=== PATIENT | female | born 1980 | race Caucasian/White ===

== ENCOUNTER 2020-10-04 00:07 | Outpatient (CLI) | payer OTHER, SELFPAY ==
[2020-10-04 19:24] LABS: SARS-CoV-2 RNA PCR Negative
== END 2020-10-04 00:08 | disposition home or self-care (01) ==
LOC: ANHCOVIDDT 00:07
PROVIDERS: Visit Provider Surgery
DX: Z20.828 Contact with and (suspected) exposure to other viral communicable diseases (principal)
CPT/HCPCS: 87635; C9803; U0003

== ENCOUNTER 2020-10-07 00:38 | Day surgery (SDC) | payer OTHER, SELFPAY ==
[2020-09-02 14:51] VITALS: BMI 28.1
[2020-10-07 11:06] VITALS: BP 119/81; PULSE 86; RESP 20; TEMP 36.9; O2SAT 100
[2020-10-07] MEDS: LACTATED RINGERS 1,000 ML 30 ML IV CONT ×2 (11:22→15:12)
[2020-10-07] MEDS: ACETAMINOPHEN 500 MG TABLET 1000 MG PO (11:44)
[2020-10-07] MEDS: KETOROLAC 15 MG/ML VIAL (*BKC) IV PUSH (11:45)
--- NOTE | 2020-10-07 12:07 | PM.IMHP ---
H&P: HPI History of Present Illness Date/Time: 10/07/20 12:07 Chief complaint: GradeIII Internal Hemorrhoid, Residual Hemorrhoid Narrative: Pippa Sena is a 40 year old female who presents with occasional bleeding internal hemorrhoids. She experiences protrusion, pain, and bleeding after BM's. Review of Systems Review of Systems: All systems reviewed & are unremarkable except as noted in HPI and below Constitutional: Constitutional: Denies chills, Denies fever(s), Denies headache(s) and Denies weight loss Eyes: Eyes: Denies change in vision ENT: Denies dizziness, Denies headache(s), Denies neck mass and Denies throat swelling Cardiovascular: Cardiovascular: Denies chest pain, Denies lightheadedness and Denies dyspnea Respiratory: Respiratory: Denies cough, Denies dyspnea and Denies wheezing Gastrointestinal: Gastrointestinal: Denies abdominal pain, Denies change in bowel habits, Denies nausea and Denies vomiting Genitourinary: Genitourinary: Denies hematuria and Denies dysuria Musculoskeletal: Musculoskeletal: Reports as per HPI Integumentary/Breasts: Skin/Breast: Reports as per HPI Neurologic: Denies dizziness and Denies headache(s) Allergic/Immunologic: Allergic/Immunologic: Denies throat swelling and Denies wheezing PMFSH Past Medical History Medical History Depression Surgical History Surgical History History of arthroplasty of knee 1998 History of delivery 2012, 2017 History of removal of skin mole nga removal 1988 2012 History of tonsillectomy 2004 Family History Family History Mother Family history of lupus erythematosus Father Diabetes mellitus Other Cerebrovascular accident Family history of allergic disorder Family history of cardiovascular disease Social History Social History Smoking status: Never smoker Alcohol intake: current Drinks per week: 5 Substance use: former Substance use type: marijuana 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 Spiritual care concerns: No Meds Home Medications and Allergies Home Medications Medication Instructions Recorded Confirmed Type cetirizine 10 mg capsule 10 mg PO DAILY 07/30/20 10/07/20 History docusate sodium 50 mg capsule 50 mg PO DAILY 07/30/20 10/07/20 History escitalopram oxalate 20 mg tablet 20 mg PO DAILY 07/30/20 10/07/20 History multivitamin,su-[id number]-turfuvyg 1 tablet PO DAILY 07/30/20 10/07/20 History Allergies Allergy/AdvReac Type Severity Reaction Status Date / Time levofloxacin Allergy Severe swollen Verified 10/07/20 11:13 lips/ gums Vital Signs Vital Signs - 24 hr 10/07/20 11:06 Temperature 36.9 C Pulse Rate 86 Respiratory Rate 20 Blood Pressure 119/81 Pulse Oximetry 100 Exam Const: General: no acute distress and alert Orientation/consciousness: patient oriented x3 HENMT: Head: normocephalic and atraumatic Ears: hearing grossly normal bilaterally General nose exam: Normal nares present Mouth: Yes Normal oral and palatal mucosa present Eyes: Periorbital: periorbital findings normal Sclera: sclerae normal EOM: EOMs intact bilaterally Neck: Neck: normal visual inspection, no lymphadenopathy and trachea midline Chest: Chest palpation & inspection: normal inspection of the chest Resp: Effort & Inspection: normal respiratory effort Auscultation: clear to auscultation bilaterally Cardio: Jugular venous distension: no JVD Rate: regular rate Rhythm: regular rhythm Heart sounds: S1 normal heart sound present and S2 normal heart sound present Peripheral pulses: Peripheral pulses 2+ throughout GI: Inspection: normal to inspection GI Palp: Yes Soft to palpation, No Tenderness to palpation present (GI), No Guarding
--- NOTE | 2020-10-07 13:24 | WPDHPUPDATE1 ---
History and Physical Update Update Date/Time: 10/07/20 13:24 History and Physical has been reviewed, including an updated exam of the patient. There are NO changes in the patient's condition. Risks, benefits, and alternatives have been discussed and questions answered. Patient agrees to proceed with procedure.
--- NOTE | 2020-10-07 13:32 | P.PNAN_ITS ---
Anes - Initial Pre Proc Eval Procedure: Operation Date: 10/07/20 13:00 Proposed Procedures p Transanal Hemorrhoid Dearterialization - Quentin Conrad DO s Excision Residual Hemorrhoid Skin Tag - Quentin Conrad DO Date/Time: 10/07/20 13:32 Surgeon: Quentin Conrad DO Pre Op Diagnosis: GradeIII Internal Hemorrhoid, Residual Hemorrhoid Patient Data Age: 40 Gender: F Height: 5 ft 7 in Weight: 85.2 kg Last Vital Signs Temp 36.9 C 10/07/20 11:06 Pulse 86 10/07/20 11:06 Resp 20 10/07/20 11:06 BP 119/81 10/07/20 11:06 Pulse Ox 100 10/07/20 11:06 Allergies Allergy/AdvReac Type Severity Reaction Status Date / Time levofloxacin Allergy Severe swollen Verified 10/07/20 11:13 lips/ gums Home Medications Medication Instructions Recorded Confirmed Type cetirizine 10 mg capsule 10 mg PO DAILY 07/30/20 10/07/20 History docusate sodium 50 mg capsule 50 mg PO DAILY 07/30/20 10/07/20 History escitalopram oxalate 20 mg tablet 20 mg PO DAILY 07/30/20 10/07/20 History multivitamin,le-jwsy-nlhwrumk 1 tablet PO DAILY 07/30/20 10/07/20 History Patient hx anesthesia problems: none Family hx anesthesia problems: none PMFSH Past Medical History Medical History Depression Surgical History Surgical History History of arthroplasty of knee 1998 History of delivery 2012, 2017 History of removal of skin mole nga removal 1988 2012 History of tonsillectomy 2004 Family History Family History Mother Family history of lupus erythematosus Father Diabetes mellitus Other Cerebrovascular accident Family history of allergic disorder Family history of cardiovascular disease Social History Social History Smoking status: Never smoker Alcohol intake: current Drinks per week: 5 Substance use: former Substance use type: marijuana 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 Questions were solicited and answers provided to the satisfaction of the patient/family/POA.
[2020-10-07] MEDS: ceFAZolin 2 GM/D5W 50 ML 2 GM/50 ML BAG IVPB (14:28)
[2020-10-07 15:12] VITALS: BP 85/48; PULSE 84; RESP 20; O2SAT 99
--- NOTE | 2020-10-07 15:16 | P.OP_ITS ---
Procedure Note - Detailed Date of procedure: 10/07/20 Pre-op diagnosis: GradeIII Internal Hemorrhoid, Residual Hemorrhoid Post-op diagnosis: other (Grade III internal hemorrhoids, thrombosed external hemorrhoid, residual hemorrhoid skin tag) Procedure performed: 1. Multiple hemorrhoid ligation with ultrasound guidance (Transanal hemorrhoid dearterialization procedure) 2. Excision of left posterior thrombosed external hemorrhoid 3. Excision of anterior midline residual hemorrhoid skin tag Description of procedure: * Procedure as well as risks, benefits, and alternatives were discussed with the patient. Written consent was obtained and placed in chart prior to procedure. Patient was brought back to surgical suite. She was placed supine hospital stretcher. She was then given IV sedation by the Anesthesia Department. She was then repositioned into prone alley-knife position and her buttocks were taped apart on each side. Her perirectal area was prepped and draped in sterile fashion using Betadine prep. Time-out was done to confirm patient and procedure. Digital rectal exam was initially performed. A Hill-Lorenz anoscope was then inserted in the anal rectal canal was carefully inspected. Prolapsing internal hemorrhoids were identified, a and a thrombosed external hemorrhoid was identified in the left posterior location, and the patient also had a residual hemorrhoid skin tag in the anterior midline location. The THD Doppler anoscope was then inserted. The pulsatile hemorrhoidal vessel was initially identified in the 1 o'clock location. A 2 0 Vicryl boujlv-[id number]-pvpcv suture was placed at this location and the suture was tied down to ligate the vessel. This was then repeated in the 3, 5, 7, 9, and 11 o'clock positions. All Doppler signals were easily identified in each location. After completing this portion of the procedure, I then examined the anoderm and anal mucosa for any persistent prolapsing tissue. An elliptical incision was made using a 15 blade scalpel around the thrombosed external hemorrhoid in the left posterior location. The thrombosis was excised completely and sent to the lab for pathology. Electrocautery was used for hemostasis, and then the incision was left open. I then repositioned a Hill-Lorenz anoscope to the anterior midline location. The residual hemorrhoid skin tag was excised using a 15 blade scalpel an elliptical fashion. Electrocautery was then used for hemostasis. The anal mucosa and anoderm was then reapproximated using 3 0 chromic simple interrupted sutures. The area was irrigated with sterile saline and hemostasis appeared adequate. One final inspection was made around the anal rectal canal and no other abnormalities were noted. 0.5% bupivacaine with epinephrine was infiltrated locally around the anus. The patient was then awakened from anesthesia and transferred to recovery. Anesthesia: GETA and local (0.5% bupivicaine with epi) Surgeon: Quentin Conrad DO Estimated blood loss (mL): 5 Drains: No Packing: Yes (Xeroform gauze) Pathology: yes (Thrombosed external hemorrhoid and residual hemorrhoid skin tag) Complications: No immediate complications Condition: stable Disposition: same day Findings: * Multiple prolapsing internal hemorrhoids identified. Thrombosed external hemorrhoid was identified in the left posterior location measuring approximately 5-7 mm. This was excised. Residual hemorrhoid skin tag was identified in the anterior midline. This was also excised. THD procedure performed in the typical locations at 1, 3, 5, 7, 9, and 11 o'clock positions. No other masses or abnormalities were noted.
[2020-10-07 15:40] VITALS: BP 96/60; PULSE 88; RESP 20; O2SAT 100
[2020-10-07] MEDS: oxyCODONE HCL (*CRX) 5 MG TAB IR PO (15:48)
[2020-10-07] MEDS: ONDANSETRON INJ 4 MG/2 ML VIAL IV PUSH ×2 (16:07→16:37)
[2020-10-07 16:10] VITALS: BP 111/67; PULSE 76; RESP 20
[2020-10-07 16:40] VITALS: BP 102/52; PULSE 74; RESP 20
== END 2020-10-07 16:57 | disposition home or self-care (01) ==
PROVIDERS: Visit Provider Surgery
PROC: (CPT 46948; principal; 2020-10-07 13:00)
PROC: (CPT 37785; 2020-10-07 13:00)
DX: K64.2 Third degree hemorrhoids (principal); K64.5 Perianal venous thrombosis; K64.4 Residual hemorrhoidal skin tags; F32.9 Major depressive disorder, single episode, unspecified
CPT/HCPCS: 46948; 46320; 88304; A9270; J0690; J1885; J2250; J2405; J2704; J3010; J7120

== ENCOUNTER → 2023-08-12 06:42 | Outpatient (CLI) | payer OTHER, SELFPAY ==
--- NOTE | ~2023-08-12 | MM_ITS ---
EXAMINATION: MM screening evan BI w zen HISTORY: Screening mammogram TECHNIQUE: Craniocaudal and mediolateral oblique 3-D tomosynthesis images were obtained and synthetic 2-D images were generated. CAD analysis was submitted and interpreted. COMPARISON: 09/06/2015 bilateral diagnostic mammography and complete left breast ultrasound examinati on BREAST PARENCHYMAL COMPOSITION: There are scattered areas of fibroglandular density. FINDINGS: There is no evidence of suspicious mass, calcification, or architectural distortion to sugg est malignancy in either breast. There has been no suspicious interval change. IMPRESSION: 1. No mammographic evidence of malignancy. 2. Recommend routine screening mammography in one year. BI-RADS Category 1: Negative Reviewed, dictated and finalized at location A.
== END ==
PROVIDERS: PCP Obstetrics & Gynecology; Visit Provider Obstetrics & Gynecology
DX: Z12.31 Encounter for screening mammogram for malignant neoplasm of breast (principal)
CPT/HCPCS: 77063; 77067

== ENCOUNTER 2024-10-20 12:18 | Outpatient (CLI) | payer OTHER, SELFPAY ==
--- NOTE | ~2024-10-20 | MM_ITS ---
EXAMINATION: MM screening evan BI w zen HISTORY: Screening TECHNIQUE: Craniocaudal and mediolateral oblique 3-D tomosynthesis images were obtained and synthetic 2-D images were generated. CAD analysis was submitted and interpreted. COMPARISON: Comparison to multiple prior studies sequentially, with oldest reviewed study dated 08/16. BREAST PARENCHYMAL COMPOSITION: Not dense: There are scattered areas of fibroglandular density. FINDINGS: There is no evidence of suspicious mass, calcification, or architectural distortion to sugg est malignancy in either breast. There has been no suspicious interval change. IMPRESSION: 1. No mammographic evidence of malignancy. 2. Recommend routine screening mammography in one year. BI-RADS Category 1: Negative Reviewed, dictated and finalized at location B. 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
== END 2024-10-20 12:19 | disposition home or self-care (01) ==
LOC: MICIMG 12:19
PROVIDERS: PCP Obstetrics & Gynecology; Visit Provider Obstetrics & Gynecology
DX: Z12.31 Encounter for screening mammogram for malignant neoplasm of breast (principal)
CPT/HCPCS: 77063; 77067

== ENCOUNTER 2025-08-23 00:57 | Day surgery (SDC) | payer OTHER, SELFPAY ==
[2025-08-13 15:15] VITALS: BMI 29.0
[2025-08-23 10:02] VITALS: BP 110/62; PULSE 91; RESP 18; TEMP 35.9; O2SAT 99
[2025-08-23 10:13] LABS: BEDSIDEPREGUCG Negative (Negative)
--- NOTE | 2025-08-23 10:25 | WPDANESEPPF ---
Anes - Initial Pre Proc Eval Procedure: Operation Date: 08/23/25 11:30 Proposed Procedures p Diagnostic Colonoscopy - Girma Strickland MD Date/Time: 08/23/25 10:25 Surgeon: Girma Strickland MD Pre Op Diagnosis: Melena Patient Data Age: 44 Gender: F Height: 1.7 m Weight: 84 kg Last Vital Signs Temp 96.7 F L 08/23/25 10:02 Pulse 91 08/23/25 10:02 Resp 18 08/23/25 10:02 BP 110/62 08/23/25 10:02 Pulse Ox 99 08/23/25 10:02 O2 Del Method Room Air 08/23/25 10:02 Allergies Allergy/AdvReac Type Severity Reaction Status Date / Time levofloxacin Allergy Severe swollen Verified 08/23/25 10:01 lips/ gums celecoxib Allergy Mild Hives Verified 08/23/25 10:01 Home Medications ?Medication ?Instructions ?Recorded ?Confirmed ?Type cetirizine 10 mg capsule (Zyrtec) 10 mg PO DAILY 07/30/20 08/13/25 History docusate sodium 50 mg capsule 50 mg PO DAILY 07/30/20 08/13/25 History (Stool Softener) multivitamin,ju-xaxi-ysddogqp 1 tablet PO DAILY 07/30/20 08/13/25 History (Complete Multivitamin tablet) cyanocobalamin (vitamin B-12) 1,000 mcg PO DAILY 06/28/25 08/13/25 History 1,000 mcg capsule bupropion HCl 150 mg 24 hr tablet, 150 mg PO QAM #30 tabs 06/30/25 08/13/25 Rx extended release (Wellbutrin XL) escitalopram oxalate 20 mg tablet 20 mg PO DAILY #90 tabs 06/30/25 08/13/25 Rx (Lexapro) Laboratory Tests 08/23/25 10:11 POC Urine HCG, Qual Negative (Negative) Patient hx anesthesia problems: none Family hx anesthesia problems: none Results Review: All pre-operative results and documents have been reviewed as part of the pre-operative evaluation. [facility] Past Medical History Medical History Gestational diabetes mellitus (GDM) Depression Surgical History Surgical History History of removal of skin mole nga removal 1988 2012 History of arthroplasty of knee 1999 History of delivery 2012, 2017 History of tonsillectomy 2004 Family History Family History Mother Family history of lupus erythematosus Father Diabetes mellitus Other Cerebrovascular accident Family history of allergic disorder Family history of cardiovascular disease Social History Social History Smoking status: Never smoker Alcohol intake: current Drinks per week: 1 Alcohol use details: social Substance use: former Substance use type: marijuana Living arrangements: with family Occupation/Education: occupation 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 BMI 29, anxiety meds. No cp or sob w 1-2 fos. Informed Consent: The patient's anesthetic plan and its attendant risks and benefits were discussed with the patient/family/POA. Questions were solicited and answers provided to the satisfaction of the patient/family/POA.
[2025-08-23] MEDS: LACTATED RINGERS 1,000 ML 150 ML IV CONT (10:49)
--- NOTE | 2025-08-23 10:52 | PM.HPGS ---
History of Present Illness History of Present Illness Consent: Risks, benefits, and alternatives have been discussed and questions answered. Patient agrees to proceed with procedure. Chief complaint: blood in stool Narrative: Pippa Sena is a 44 year old female here for first colonoscopy because blood in stools, had hemorrhoidectomy few years ago Review of Systems Review of Systems: All systems reviewed & are unremarkable except as noted in HPI and below PMFSH Past Medical History Medical History (Updated 08/23/25 @ 10:53 by Girma Strickland MD) Rectal bleeding Gestational diabetes mellitus (GDM) Depression Surgical History Surgical History History of removal of skin mole nga removal 1988 2012 History of arthroplasty of knee 1998 History of delivery 2012, 2017 History of tonsillectomy 2004 Family History Family History Mother Family history of lupus erythematosus Father Diabetes mellitus Other Cerebrovascular accident Family history of allergic disorder Family history of cardiovascular disease Social History Social History Smoking status: Never smoker Alcohol intake: current Drinks per week: 1 Alcohol use details: social Substance use: former Substance use type: marijuana Living arrangements: with family Occupation/Education: occupation 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 Spiritual care concerns: No Meds Home Medications and Allergies Home Medications ?Medication ?Instructions ?Recorded ?Confirmed ?Type cetirizine 10 mg capsule (Zyrtec) 10 mg PO DAILY 07/30/20 08/13/25 History docusate sodium 50 mg capsule 50 mg PO DAILY 07/30/20 08/13/25 History (Stool Softener) multivitamin,mv-gjmn-aoagngcu 1 tablet PO DAILY 07/30/20 08/13/25 History (Complete Multivitamin tablet) cyanocobalamin (vitamin B-12) 1,000 mcg PO DAILY 06/28/25 08/13/25 History 1,000 mcg capsule bupropion HCl 150 mg 24 hr tablet, 150 mg PO QAM #30 tabs 06/30/25 08/13/25 Rx extended release (Wellbutrin XL) escitalopram oxalate 20 mg tablet 20 mg PO DAILY #90 tabs 06/30/25 08/13/25 Rx (Lexapro) Allergies Allergy/AdvReac Type Severity Reaction Status Date / Time levofloxacin Allergy Severe swollen Verified 08/23/25 10:01 lips/ gums celecoxib Allergy Mild Hives Verified 08/23/25 10:01 Vital Signs Vital Signs - 24 hr 08/23/25 10:02 Temperature 96.7 F L Pulse Rate 91 Respiratory Rate 18 Blood Pressure 110/62 Pulse Oximetry 99 Oxygen Delivery Room Air Exam Const: General: comfortable and no acute distress HENMT: Face/Nose/Sinus: Normal nares present Eyes: General: appearance normal, both eyes and all related structures Neck: Neck: no JVD Resp: Auscultation: clear to auscultation bilaterally Cardio: Rate: regular rate Rhythm: regular rhythm GI: Inspection: non-distended GI Palp: Yes Soft to palpation Skin: General skin exam: normal color Extrem: General: normal to inspection Psych: Mental Status: mental status grossly normal Assessment and Plan Assessment and plan (1) Rectal bleeding: Code(s): K62.5 - Hemorrhage of anus and rectum Status: Acute Assessment and Plan: colonoscopy
--- NOTE | 2025-08-23 11:08 | S_PTH ---
PATIENT: Pippa Sena LOC: [facility]#:[id number] AGE/SX: 44/F ROOM: RE08/23/[address]: Girma Strickland MD : 1980 BED: DIS: 08/23/2025 SPEC #: [id number] RECD: 08/23/25 11:35 STATUS: ADWOA REPaco #: [id number] SIMON: 08/23/25 11:[address]: Girma Strickland DEPT: [facility] Surgical RECD BY: Lorena Veloz ENTERED: 08/23/25 11:35 SP TYPE: Surgical OTHR DR: Clarence Rodriguez, PAKenneth Tissues: A - Colon Polypectomy Procedures: Hematoxylin and Eosin Stain Gross and Microscopic Level 4
[2025-08-23 11:12] VITALS: BP 83/54; PULSE 80; RESP 20; O2SAT 96
[2025-08-23 11:22] VITALS: BP 92/63; PULSE 88; RESP 18; O2SAT 98
[2025-08-23 11:32] VITALS: BP 103/78; PULSE 73; RESP 18; O2SAT 98
== END 2025-08-23 11:47 | disposition home or self-care (01) ==
PROVIDERS: Anesthesiology; PCP Physician Assistant; Referring Provider Obstetrics & Gynecology; Visit Provider Internal Medicine Gastroenterology
PROC: 0DJD8ZZ Inspection of Lower Intestinal Tract, Via Natural or Artificial Opening Endoscopic (ICD-10-PCS; CPT 45378; principal; 2025-08-23 11:30)
DX: D12.3 Benign neoplasm of transverse colon (principal); K64.8 Other hemorrhoids; K62.89 Other specified diseases of anus and rectum; F32.A Depression, unspecified; F41.9 Anxiety disorder, unspecified; F12.90 Cannabis use, unspecified, uncomplicated; Z98.890 Other specified postprocedural states; Z82.49 Family history of ischemic heart disease and other diseases of the circulatory system
CPT/HCPCS: 45385; 88305; J2003; J2704; J7120